=== PATIENT | female | born 1975 | race Two or more races ===

== ENCOUNTER 2020-07-05 11:03 | Inpatient (IN) | payer MEDICAID ==
[~2020-07-05] VITALS: Ht 165.1 cm; Wt 83.7 kg
--- NOTE | 2020-07-05 11:22 | NUR ---
came in for epigastric area pain, constipation x tuesday. nausea/vomiting started x am, to ER bed 9, hooked to BP cuff and POX. changed to hosp gown, warm blanket provided, patient AAO x 4, breathing even and unlabored. NAD noted.
[2020-07-05] MEDS ORDERED: ONDANSETRON HCL/PF 4 MG/2 ML VIAL ONE (11:58)
[2020-07-05] MEDS ORDERED: MORPHINE SULFATE INJ 4 MG/ML DISP.SYRIN ONE (11:59)
[2020-07-05 12:00] LABS: BASOPHILS # (AUTO) 0.1 /CMM (0.0-0.2); BASOPHILS % (AUTO) 0.4 % (0.0-2.0); HEMATOCRIT 43 % (33-45); LYMPHOCYTES # (AUTO) 1.8 /CMM (0.8-4.8); LYMPHOCYTES % (AUTO) 9.7 % (20.0-44.0); MEAN CORPUSCULAR HGB CONC 33 g/dl (31.0-36.0); MEAN CORPUSCULAR VOLUME 90 fL (82-100); MONOCYTES # (AUTO) 0.6 /CMM (0.1-1.30); MONOCYTES % (AUTO) 3.4 % (2.0-12.0); NEUTROPHILS # (AUTO) 16.3 /CMM (1.8-8.9); NEUTROPHILS % (AUTO) 85.5 % (43.0-81.0); PLATELET COUNT (AUTO) 453 /CMM (150-450); RED BLOOD CELL COUNT(AUTO) 4.77 MIL/uL (4.0-5.2)
[2020-07-05] MEDS ORDERED: IV NS 0.9% 1,000 ML BAG IV ONE (12:00)
[2020-07-05] MEDS ORDERED: ONDANSETRON HCL/PF 4 MG/2 ML VIAL IVP ONE (12:00)
[2020-07-05] MEDS ORDERED: MORPHINE SULFATE INJ 2 MG/ML DISP.SYRIN IV ONE (12:00)
--- NOTE | 2020-07-05 12:07 | NUR ---
PRODUCT BLENDING SUPERVISOR AT BEDSIDE FOR GABBI
[2020-07-05 12:15] LABS: ALBUMIN 3.6 g/dL (3.4-5.0); BILIRUBIN,DIRECT 0.1 mg/dL (0.0-0.2); BILIRUBIN,TOTAL 0.6 mg/dL (0.2-1.0); CREATININE 0.9 mg/dL (0.6-1.3); POTASSIUM 3.9 mmol/L (3.5-5.1); TOTAL PROTEIN, SERUM 7.5 g/dL (6.4-8.2)
[2020-07-05] MEDS ORDERED: MAG HYDROX/AL HYDROX/SIMETH 30 ML UDC PO ONE (13:30)
[2020-07-05] MEDS ORDERED: LIDOCAINE VISCOUS 2% UD 15 ML UDC MM ONE (13:30)
[2020-07-05] MEDS ORDERED: FAMOTIDINE/PF INJ 20 MG/2 ML VIAL IV ONE ×2 (13:30→14:21)
--- NOTE | 2020-07-05 14:00 | NUR ---
URINE SAMPLE COLLECTED AND SENT TO LAB
[2020-07-05] MEDS ORDERED: LIDOCAINE VISCOUS 2% UD 15 ML UDC ONE (14:21)
[2020-07-05] MEDS ORDERED: MAG HYDROX/AL HYDROX/SIMETH 30 ML UDC ONE (14:21)
[2020-07-05] MEDS ORDERED: IOHEXOL-300 100 ML VIAL IV ONE (14:29)
[2020-07-05] MEDS ORDERED: IV NS 0.9% 250 ML IV ONE (14:29)
--- NOTE | 2020-07-05 16:20 | NUR ---
DR. AUGUSTIN CALLED [phone]
--- NOTE | 2020-07-05 16:26 | NUR ---
MOVE SHEET SUBMITTED. SHIRRER PAGED.
[2020-07-05] MEDS ORDERED: PIPERACILLIN /TAZOBACTAM 3.375 G in IV D5W 50 ML IV ONE (16:30)
[2020-07-05] MEDS ORDERED: PIPERACILLIN /TAZOBACTAM 3.375 G VIAL IV ONE (16:33)
--- NOTE | 2020-07-05 16:35 | NUR ---
ROLL OVER LOADER AT BEDSIDE FOR XRAY
--- NOTE | 2020-07-05 16:38 | NUR ---
REMELT SUGAR BOILER AT BEDSIDE FOR TYPE AND SCREEN
--- NOTE | 2020-07-05 16:45 | NUR ---
DR ALCANTAR AT BEDSIDE
--- NOTE | 2020-07-05 16:53 | NUR ---
SURGERY WILL BE SCHEDULED TOMORROW PER DR ALCANTAR, PATIENT WILL BE PLACED NPO AT MIDNIGHT
[2020-07-05] MEDS ORDERED: Z GUARD REMEDY 2 OZ OINT TP PRN (17:00)
[2020-07-05] MEDS ORDERED: HYDROCODONE/APAP 5/325MG TABLET PO PRN (17:00)
[2020-07-05] MEDS ORDERED: ACETAMINOPHEN 325 MG TABLET PO PRN (17:00)
[2020-07-05] MEDS ORDERED: ONDANSETRON HCL/PF 4 MG/2 ML VIAL IVP PRN (17:00)
--- NOTE | 2020-07-05 17:07 | NUR ---
PATIENT SIGNED CONSENT FOR SURGERY, ANESTHESIA, BLOOD TRANSFUSION AND PATIENT ACKNOWLEDGEMENT FOR PROCEDURES/SURGERY DURING COVID-19 PANDEMIC.
[2020-07-05] MEDS ORDERED: PIPERACILLIN /TAZOBACTAM 4.5 G in IV D5W 50 ML IV SCH (18:00)
--- NOTE | 2020-07-05 18:47 | NUR ---
LAB CALLED PT COVID-19 RESULT NEGATIVE (-).
[2020-07-05] MEDS: MORPHINE SULFATE INJ 2 MG/ML DISP.SYRIN IV PRN ×2 (19:04→23:13)
--- NOTE | 2020-07-05 19:48 | NUR ---
REPORT GIVEN TO AUDREY BRADY FOR SUSANNA
[2020-07-05] MEDS: IV 1/2NS 1000 ML 1,000 ML IV PRN (20:32)
--- NOTE | 2020-07-05 21:42 | NUR ---
REPORT GIVEN TO KRISTI BRADY FOR SUSANNA.
[2020-07-05 22:05] VITALS: BP 132/79
--- NOTE | 2020-07-05 22:05 | NUR ---
BILL RECEIVED FROM ER VIA ELADIO A 44 Y/O FEMALE WITH CC OF ABDOMINAL PAIN AND CONSTIPATION SINCE TUESDAY. ALERT/ORIENTED X4. AMBULATORY, RA 99%, ABD PAIN TOLERABLE FOR NOW. ORIENTED TO ROOM FACILITIES, PLAN OF CARE AND MEDICATION REGIMEN DISCUSSED WITH PATIENT WELL UNDERSTOOD. WILL KEEP PATIENT NPO POST MIDNIGHT PATIENT SCHEDULED FOR SURGERY LINDA AFTERNOON. CALL LIGHT USE REVIEWED WITH PATIENT INSTRUCTED TO CALL STAFF FOR ANY ASSISTANCE OR FURTHER DISCOMFORTS.SAFETY PRECAUTIONS EMPHASIZED, WELL UNDERSTOOD.
[2020-07-05 22:30] VITALS: BP 132/79
--- NOTE | 2020-07-05 23:15 | NUR ---
MSRN VERBALIZES EPIGASTRIC PAIN MORPHINE 1MG IVP ADMINISTERED ORDERED. BEDREST FOR NOW.
--- NOTE | 2020-07-05 23:45 | NUR ---
MSRN LEVEL OF PAIN DOWN TO 2, RESTING QUIETLY.
[2020-07-06] MEDS ORDERED: PIPERACILLIN /TAZOBACTAM 4.5 G in IV D5W 50 ML IV SCH ×2
--- NOTE | 2020-07-06 00:10 | NUR ---
MSRN NPO INSTRUCTED. ZOSYN ADMINISTERED
[2020-07-06] MEDS ORDERED: PIPERACILLIN /TAZOBACTAM 2.25 G VIAL IV ONE (00:21)
[2020-07-06] MEDS: MORPHINE SULFATE INJ 2 MG/ML DISP.SYRIN IV PRN ×4 (03:59→22:52)
[2020-07-06 06:23] LABS: BASOPHILS % (AUTO) 0.4 % (0.0-2.0); EOSINOPHILS % (AUTO) 1.4 % (0.0-6.0); HEMATOCRIT 38 % (33-45); HEMOGLOBIN 12.8 g/dL (11.5-14.8); LYMPHOCYTES # (AUTO) 3.1 /CMM (0.8-4.8); LYMPHOCYTES % (AUTO) 25.7 % (20.0-44.0); MEAN CORPUSCULAR HGB CONC 34 g/dl (31.0-36.0); MEAN CORPUSCULAR VOLUME 88 fL (82-100); MONOCYTES # (AUTO) 0.8 /CMM (0.1-1.30); MONOCYTES % (AUTO) 6.3 % (2.0-12.0); NEUTROPHILS # (AUTO) 8.1 /CMM (1.8-8.9); NEUTROPHILS % (AUTO) 66.2 % (43.0-81.0); PLATELET COUNT (AUTO) 350 /CMM (150-450); RED BLOOD CELL COUNT(AUTO) 4.34 MIL/uL (4.0-5.2); WHITE BLOOD COUNT (AUTO) 12.2 K/uL (4.3-11.0)
[2020-07-06] MEDS: PIPERACILLIN /TAZOBACTAM 3.375 G in IV D5W 50 ML IV SCH ×3 (06:49→18:10)
[2020-07-06] MEDS: IV 1/2NS 1000 ML 1,000 ML IV PRN (06:50)
[2020-07-06 06:51] LABS: BILIRUBIN,TOTAL 0.9 mg/dL (0.2-1.0); CALCIUM, SERUM 8.2 mg/dL (8.5-10.1); CREATININE 0.8 mg/dL (0.6-1.3); MAGNESIUM 1.9 mg/dL (1.8-2.4); PHOSPHORUS 3.9 mg/dL (2.5-4.9); POTASSIUM 3.4 mmol/L (3.5-5.1); TOTAL PROTEIN, SERUM 6.4 g/dL (6.4-8.2)
[2020-07-06 09:48] VITALS: BP 124/75
[2020-07-06] MEDS: POTASSIUM CL. PREMIX PERIPHER. 50 ML IV SCH ×2 (12:16→14:19)
[2020-07-06 16:18] VITALS: BP 118/69
--- NOTE | 2020-07-06 18:00 | NUR ---
RN closing Patient in bed resting, does no appears distress or discomfort. Skin is warm to touch, keep clean/dry, intact midline on right upper arm. Respiratory even and unlabored on room air O2sat 90%. Kept elevated HOB for ensure air way and aspiration precaution and lowest bed for safety. Call light within reach, will endorse casino shift manager
--- NOTE | 2020-07-06 18:00 | NUR ---
RN Opening note Received patient in bed, awaken able to responds all stimuli, Pt does no c/o pain or distress. Skin is warm to touch keep clean/dry intact IV site, respiratory even and unlabored on room air, O2sat 92%. Kept locked bed with elevated HOB for aspiration precaution and ensure airway and lowest bed foe safety. Call light within reach, will continue to monitor.
[2020-07-06] MEDS ORDERED: BUPIVACAINE MPF W/EPI 0.25% 30 ML VIAL ONE (18:12)
[2020-07-06] MEDS ORDERED: LIDOCAINE 1% INJ 50 ML MDV IJ ONE (18:12)
[2020-07-06] MEDS ORDERED: FENTANYL PF 100MCG/2ML AMPUL ONE ×2 (18:53→20:10)
[2020-07-06] MEDS ORDERED: MIDAZOLAM HCL 2 MG/2ML VIAL ONE (18:53)
[2020-07-06] MEDS ORDERED: BACITRACIN ZINC OINT PACKET 1 EA PACKET TP ONE (19:35)
[2020-07-06] MEDS ORDERED: HYDROMORPHONE 1 MG/1 ML DISP.SYRIN ONE (19:50)
[2020-07-06 20:00] VITALS: BP 119/75
[2020-07-06] MEDS ORDERED: HYDROCODONE/APAP 10/325MG TABLET PO PRN (21:00)
[2020-07-06] MEDS: IV LR 1000 ML 1,000 ML IV PRN (22:53)
[2020-07-07] MEDS: PIPERACILLIN /TAZOBACTAM 3.375 G in IV D5W 50 ML IV SCH ×5 (00:36→23:49)
--- NOTE | 2020-07-07 01:27 | NUR ---
RN OPENING NOTES RECEIVED PATIENT IN BED AWAKE, ALERT AND ORIENTED X4. NO S/S OF RESPIRATORY DISTRESS, SKIN IS WARM TO TOUCH, DRY AND INTACT. RESPIRATION EVEN AND UNLABORED WITH EQUAL RISE AND FALL OF THE CHEST. PATIENT ABLE TO VERBALIZE NEEDS. CALL LIGHT WITHIN REACH. BED IN LOWEST POSITION AND LOCKED. WILL CONTINUE TO MONITOR PATIENT THROUGHOUT SHIFT.
[2020-07-07] MEDS: MORPHINE SULFATE INJ 2 MG/ML DISP.SYRIN IV PRN (04:03)
--- NOTE | 2020-07-07 04:06 | NUR ---
RN NOTES: PATIENT C/O ABDOMINAL AND GENERALIZED BODY PAIN. MORPHINE SULFATE IMG/0.5ML ADMINISTERED AT 0403. WILL CONTINUE TO MONITOR.
[2020-07-07 07:37] LABS: BASOPHILS % (AUTO) 0.2 % (0.0-2.0); HEMATOCRIT 40 % (33-45); HEMOGLOBIN 12.9 g/dL (11.5-14.8); LYMPHOCYTES # (AUTO) 1.8 /CMM (0.8-4.8); LYMPHOCYTES % (AUTO) 10.1 % (20.0-44.0); MEAN CORPUSCULAR HGB CONC 33 g/dl (31.0-36.0); MEAN CORPUSCULAR VOLUME 89 fL (82-100); MONOCYTES # (AUTO) 0.6 /CMM (0.1-1.30); MONOCYTES % (AUTO) 3.2 % (2.0-12.0); NEUTROPHILS # (AUTO) 15.2 /CMM (1.8-8.9); NEUTROPHILS % (AUTO) 86.5 % (43.0-81.0); PLATELET COUNT (AUTO) 414 /CMM (150-450); RED BLOOD CELL COUNT(AUTO) 4.45 MIL/uL (4.0-5.2); WHITE BLOOD COUNT (AUTO) 17.6 K/uL (4.3-11.0)
--- NOTE | 2020-07-07 07:50 | NUR ---
MS RN OPENING NOTE PATIENT IS IN BED RESTING. PATIENT IS IN NO ACUTE DISTRESS. NO SOB NOTED. PATIENT IS ON ROOM AIR. PATIENT IS AWAKE AND STABLE. SAFETY PRECAUTIONS ARE IN PLACE. BED IS LOCKED AND IN THE LOWEST POSITION. SIDE RAILS ARE UP, CALL LIGHT WITHIN REACH. WILL CONTINUE TO MONITOR THROUGH OUT THE SHIFT.
[2020-07-07 08:00] VITALS: BP 123/73
[2020-07-07 08:01] LABS: CALCIUM, SERUM 8.6 mg/dL (8.5-10.1); CREATININE 0.7 mg/dL (0.6-1.3); MAGNESIUM 1.9 mg/dL (1.8-2.4); PHOSPHORUS 3.9 mg/dL (2.5-4.9); POTASSIUM 4.2 mmol/L (3.5-5.1)
--- NOTE | 2020-07-07 08:14 | NUR ---
RN CLOSING NOTES RECEIVED PATIENT IN BED AWAKE, ALERT AND ORIENTED X4. NO S/S OF RESPIRATORY DISTRESS, SKIN IS WARM TO TOUCH, DRY AND INTACT. RESPIRATION EVEN AND UNLABORED WITH EQUAL RISE AND FALL OF THE CHEST. PATIENT ABLE TO VERBALIZE NEEDS. CALL LIGHT WITHIN REACH. BED IN LOWEST POSITION AND LOCKED. ENDORSED TO AM SHIFT
[2020-07-07] MEDS: IV LR 1000 ML 1,000 ML IV PRN ×2 (08:28→21:05)
[2020-07-07 16:00] VITALS: BP 143/84
--- NOTE | 2020-07-07 19:46 | NUR ---
MS RN CLOSING NOTE PATIENT IS IN BED RESTING. PATIENT IS IN NO ACUTE DISTRESS. NO SOB NOTED. PATIENT IS ON ROOM AIR. PATIENT IS AWAKE AND STABLE. SAFETY PRECAUTIONS ARE IN PLACE. BED IS LOCKED AND IN THE LOWEST POSITION. SIDE RAILS ARE UP, CALL LIGHT WITHIN REACH. ENDORSE PATIENT TO RADIO FREQUENCY DESIGN ENGINEER NURSE FOR SUSANNA.
--- NOTE | 2020-07-07 19:52 | NUR ---
RN NOTES PATIENT IS IN BED RESTING. PATIENT IS IN NO ACUTE DISTRESS. NO SOB NOTED. PATIENT IS ON ROOM AIR. PATIENT IS AWAKE AND STABLE. IV ACCESS ON R HAND 3 22G RUNNING lr @ 125ml/hr SAFETY PRECAUTIONS ARE IN PLACE. BED IS LOCKED AND IN THE LOWEST POSITION. SIDE RAILS ARE UP, CALL LIGHT WITHIN REACH. WILL CONTINUE TO MONITOR.
[2020-07-07 22:43] VITALS: BP 126/74
[2020-07-08] MEDS: PIPERACILLIN /TAZOBACTAM 3.375 G in IV D5W 50 ML IV SCH ×2 (05:00→12:11)
--- NOTE | 2020-07-08 06:55 | NUR ---
RN NOTES PATIENT IS IN BED RESTING. PATIENT IS IN NO ACUTE DISTRESS. NO SOB NOTED. PATIENT IS ON ROOM AIR TOLERATING WELL.PATIENT IS AWAKE AND STABLE. IV ACCESS ON L HAND 22G RUNNING LR @ 125ml/hr SAFETY PRECAUTIONS ARE IN PLACE. BED IS LOCKED AND IN THE LOWEST POSITION. SIDE RAILS ARE UP, CALL LIGHT WITHIN REACH. WILL ENDORSE CARE TO DAY SHIFT NURSE.
[2020-07-08 07:33] LABS: BASOPHILS # (AUTO) 0.1 /CMM (0.0-0.2); BASOPHILS % (AUTO) 0.6 % (0.0-2.0); EOSINOPHILS % (AUTO) 1.3 % (0.0-6.0); HEMATOCRIT 37 % (33-45); HEMOGLOBIN 12.1 g/dL (11.5-14.8); LYMPHOCYTES # (AUTO) 3.6 /CMM (0.8-4.8); LYMPHOCYTES % (AUTO) 31.1 % (20.0-44.0); MEAN CORPUSCULAR HGB CONC 33 g/dl (31.0-36.0); MEAN CORPUSCULAR VOLUME 89 fL (82-100); MONOCYTES # (AUTO) 0.8 /CMM (0.1-1.30); MONOCYTES % (AUTO) 6.6 % (2.0-12.0); NEUTROPHILS # (AUTO) 6.9 /CMM (1.8-8.9); NEUTROPHILS % (AUTO) 60.4 % (43.0-81.0); PLATELET COUNT (AUTO) 360 /CMM (150-450); RED BLOOD CELL COUNT(AUTO) 4.16 MIL/uL (4.0-5.2); WHITE BLOOD COUNT (AUTO) 11.4 K/uL (4.3-11.0)
[2020-07-08 08:00] VITALS: BP 116/69
--- NOTE | 2020-07-08 15:00 | NUR ---
MS INTERMEDIATE PROJECT MANAGER NOTE PATIENT IS IN NO ACUTE DISTRESS. PATIENT IS MEDICALLY STABLE. NO SOB NOTED. BREATHING IS EVEN AND UNLABORED. VITAL SIGNS ARE WNL. DISCHARGE INSTRUCTIONS PROVIDED. PATIENT VERBALIZED UNDERSTANDING. SKIN ASSESSED, PATIENTS SKIN IS INTACT. BELONGINGS LIST VERIFIED AND SIGNED. PATIENTS IV LINE AND ID BAND REMOVED. PATIENT WAS PICKED UP BY HER BOYFRIEND VIA PRIVATE CAR. MD IS AWARE OF DISCHARGE.
== END 2020-07-08 15:15 | disposition home or self-care (01) | DRG 234 ==
LOC: ER 11:08 → TRANSITION 19:02 → MED 21:36
PROVIDERS: ADMIT Internal Medicine
PROC: 0DTJ4ZZ Resection of Appendix, Percutaneous Endoscopic Approach (ICD-10-PCS; principal; 2020-07-06)
DX: K35.80 Unspecified acute appendicitis (principal); N28.1 Cyst of kidney, acquired; K58.9 Irritable bowel syndrome, unspecified; G43.909 Migraine, unspecified, not intractable, without status migrainosus; Z91.09 Other allergy status, other than to drugs and biological substances
CPT/HCPCS: 36415; 71045-TC; 76705-TC; 80048-TC; 80053-TC; 80076-TC; 83690-TC; 83735-TC; 84100-TC; 84703-TC; 85025-TC; 85610-TC; 86850-TC; 88304-TC; C9803; G0378; J1170; J2250; J2270; J2405; J2543; J3010; J3480; J3490; J7030; J7050; J7060; J7120; Q9967